=== PATIENT | female | born 1945 | race Caucasian/White ===

== ENCOUNTER 2017-06-26 15:26 | Emergency (ER) | payer OTHER ==
[2017-06-26] MEDS: LORAZEPAM 2 MG INJ IV (15:54)
[2017-06-26 15:55] LABS: ADD MAN DIFF? NO
[2017-06-26 15:58] LABS: BASOPHILS % 0.8 % (0.0-2.0); EOSINOPHILS # 0.1 10^3/ul (0.0-0.5); EOSINOPHILS % 2.2 % (0.0-7.0); HEMATOCRIT 36.9 % (37.0-47.0); HEMOGLOBIN 12.7 g/dl (12.0-16.0); LYMPHOCYTES # 2.1 10^3/ul (0.8-2.9); LYMPHOCYTES % 41.7 % (15.0-51.0); MEAN CORPUSCULAR HEMOGLOBIN 29.6 pg (29.0-33.0); MEAN CORPUSCULAR HGB CONC 34.4 g/dl (32.0-37.0); MEAN PLATELET VOLUME 10.5 fl (7.4-10.4); MONOCYTE # 0.4 10^3/ul (0.3-0.9); MONOCYTES % 8.2 % (0.0-11.0); NEUTROPHIL # 2.4 10^3/ul (1.6-7.5); NEUTROPHILS % 46.9 % (39.0-77.0); PLATELET COUNT 185 10^3/UL (140-415); RED BLOOD COUNT 4.29 10^6/ul (4.20-5.40); RED CELL DISTRIBUTION WIDTH 13.4 % (11.5-14.5)
[2017-06-26 18:03] LABS: ANION GAP 19 (8-16); BLOOD UREA NITROGEN 27 mg/dl (7-20); CALCIUM 9.2 mg/dl (8.4-10.2); CARBON DIOXIDE 22 mmol/L (21-31); CHLORIDE 100 mmol/L (97-110); SODIUM 138 mmol/L (135-144)
[2017-06-26 18:04] LABS: GLUCOSE 164 mg/dl (70-220)
[2017-06-26 18:06] LABS: POTASSIUM 2.9 mmol/L (3.5-5.1)
[2017-06-26 18:15] LABS: TROPONIN-I < 0.012 ng/ml (0.00-0.12)
[2017-06-26] MEDS: POTASSIUM CHLORIDE (SR) 20 MEQ TAB PO (18:21)
== END 2017-06-26 19:08 | disposition home or self-care (01) ==
LOC: E/R 15:26
DX: F41.9 Anxiety disorder, unspecified (principal); E87.6 Hypokalemia; I10 Essential (primary) hypertension; E11.9 Type 2 diabetes mellitus without complications; Z79.4 Long term (current) use of insulin
CPT/HCPCS: 36415; 71010; 80048; 84484; 85025; 93005; 96374; 99285-25